=== PATIENT | female | born 1965 | race Two or more races ===

== ENCOUNTER 2025-01-18 20:56 | Emergency (ER) | payer MEDICAID, SELFPAY ==
[2025-01-18 20:56] VITALS: BMI 31.2
[2025-01-18 21:05] VITALS: BP 122/81; PULSE 99; RESP 20; TEMP 36.7; O2SAT 98
--- NOTE | 2025-01-18 21:12 | XR_ITS ---
Examination: PA and lateral chest 2 views Technique upright PA lateral chest 2 views Date time: January 18, 2025 2156 hours INDICATIONS: Chest pain and tachycardia today. FINDINGS: Normal heart size. Lungs are clear. Moderate osteopenia IMPRESSION: No active disease
--- NOTE | 2025-01-18 21:12 | EKG_ITS ---
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
--- NOTE | 2025-01-18 21:13 | PD.EDRME ---
Rapid Medical Screening Exam RME Arrival date/time: 01/18/25 20:56\ 59 yo f present to ED For c/o of rapid hr, chest pain today I have greeted and performed a focused initial assessment of this patient. A comprehensive ED assessment and evaluation of the patient, analysis of all test results, and completion of the medical decision making process will be conducted by additional ED providers. Chief Complaint: Arrhythmia/Palpitations Time Seen by Provider: 01/18/25 21:07 Vital signs: Vital Signs Temperature 98.0 F 01/18/25 21:05 Pulse Rate 99 01/18/25 21:05 Respiratory Rate 20 01/18/25 21:05 Blood Pressure 122/81 01/18/25 21:05 Pulse Oximetry (%) 98 01/18/25 21:05 Oxygen Delivery Method Room Air 01/18/25 21:05
[2025-01-18 22:55] LABS: Basophils # (Auto) 0.1 Thou/mm3 (0.0-0.2); Basophils % (Auto) 1 % (0-2.5); Eosinophils # (Auto) 0.2 Thou/mm3 (0.0-0.5); Eosinophils % (Auto) 2 % (0-10); Hematocrit 35.9 % (36.0-46.0); Hemoglobin 12.5 g/dL (12.0-16.0); Immature Granulocytes % (Auto) 0 % (0-0); Immature Granulocytes Auto 0.02 Thou/mm3 (0.00-0.00); Lymphocytes # (Auto) 2.7 Thou/mm3 (1.0-4.8); Lymphocytes % (Auto) 31 % (10-50); Mean Corpuscular HGB Conc 34.8 g/dl (31.0-37.0); Mean Corpuscular Hemoglobin 30.6 pg (25.0-35.0); Mean Corpuscular Volume 88 fL (80-100); Monocytes # (Auto) 0.7 Thou/mm3 (0.0-0.8); Monocytes % (Auto) 8 % (0-12); Neutrophils % (Auto) 58 % (37-80); Nucleated Red Blood Cell % 0 /100 WBC (0); Platelet Count 297 Thou/mm3 (140-440); RDW Standard Deviation 43.9 fL (36.4-46.3); Red Blood Count 4.08 Miln/mm3 (4.00-5.20); White Blood Count 8.6 Thou/mm3 (3.6-11.0)
[2025-01-18 23:36] LABS: Alanine Aminotransferase 18 U/L (10-49); Albumin, Serum 4.4 gm/dL (3.4-4.8); Albumin/Globulin Ratio 1.6 (1.2-2.2); Alkaline Phosphatase 84 U/L (46-116); Anion Gap 8 (7-16); Aspartate Amino Transferase 21 U/L (0-34); BUN/Creatinine Ratio 21 Ratio (12-20); Bilirubin,Total 0.4 mg/dL (0.3-1.2); Blood Urea Nitrogen 19 mg/dL (9-23); Calcium 8.9 mg/dL (8.3-10.6); Calcium (Corrected) 8.9 mg/dL (8.5-10.1); Carbon Dioxide 24.9 mMol/L (20.0-31.0); Chloride 106 mMol/L (98-107); Creatinine (Component) 0.9 mg/dL (0.6-1.3); Estimated Creatinine Clearance 59.1 mL/min (>60); Globulin 2.8 gm/dL (2.3-3.5); Glucose 111 mg/dL (74-106); Lipase 52 U/L (12-53); Osmolality,Calculated 280 (275-295); Sodium 139 mMol/L (136-145); Total Protein 7.2 gm/dL (5.7-8.2); Troponin I 0.028 ng/mL (0.0-0.045); eGFR > 60 See Note
--- NOTE | 2025-01-19 00:46 | PD.EDARRY ---
ED Arrhythmia Palp. RME/HPI General Chief Complaint: Arrhythmia/Palpitations Stated Complaint: HEART PALPITATIONS Time Seen by Provider: 01/18/25 21:07 Arrival date/time: 01/18/25 20:56 RME / HPI RME / HPI narrative: 01/18/25 20:56\ 59 yo f present to ED For c/o of rapid hr, chest pain today I have greeted and performed a focused initial assessment of this patient. A comprehensive ED assessment and evaluation of the patient, analysis of all test results, and completion of the medical decision making process will be conducted by additional ED providers. This section includes all my notes and documentations, including HPI, PE, and ED course. Davey Del Cid MD HPI: 59 y/o female presents to ED c/o gradually worsening heart palpitations and pain to the back of the head x approximately 5 hours ago. Reports increased stress. Patient is currently taking Levothyroxine. No chest pain. No other complaints. ROS: All negative except as documented in HPI. Physical Exam: General:? Alert and oriented.? Appears anxious. Eyes:? Conjunctivae and lids clear.? EOMI.? PERRL. ENT:? No nasal congestion.? Pharynx normal.? Tympanic membrane normal bilaterally.??? Neck:? Supple.? No lymphadenopathy.? No JVD.?? Heart:? RRR.? Lungs:? No respiratory distress.? Good air movement.? No rhonchi, wheezing, rales.?? Abdomen:? Soft and nontender.? Back:? No CVA tenderness.?? Legs:? No clubbing, cyanosis, edema.? Skin:? Warm and dry.?? Neuro:? Alert and oriented X 3.? Cranial Nerves II-XII grossly intact.? No peripheral motor deficits. I reviewed all diagnostic test results. My interpretation of the EKG is sinus rhythm with no acute ST?T changes. My interpretation of the chest x-ray is NAD Blood tests unremarkable. At this point, diagnoses include stress and anxiety reaction. Patient improved completely spontaneously here. Recommended more outpatient workup. Based on my best medical judgment, made decision no further evaluation or treatment indicated at this time. Patient understands and agrees to the discharge instructions customized and printed, see below. Discharge instructions from Dr. Del Cid: 1. After extensive evaluation, there is no life-threatening condition.? Such as heart attack or pneumothorax (collapsed lung). 2. Your symptoms may be due to underlying stress or anxiety or nerves.? This is fairly common. 3. Take Xanax as needed.? Whether this helps or not will be valuable information to your private doctors. 4. See a private doctor on 01/20/2025. Ask to review all test results and official radiology reports, to make sure you receive all necessary follow-ups and monitoring. To make sure there is no serious underlying heart condition, ask to help you get more tests for your heart that cannot be done here in the ER.? Such as Holter Monitor (cardiac monitoring at home from a day to even a month), heart stress test (on treadmill or with medication), echocardiogram (imaging of your heart structures), heart catherization (checking for blockages in your heart arteries), and a referral to see a Radio Television Announcer. 5. Seek immediate medical care with worsening or with any concerns.?? Davey Del Cid MD Related Data Home Medications ?Medication ?Instructions ?Recorded ?Confirmed ciprofloxacin 500 mg/5 mL oral 500 mg PO BID ##0 01/29/08 suspension (Cipro) Previous Rx's ?Medication ?Instructions ?Recorded ciprofloxacin HCl 0.3 % eye drops See Rx Instructions ophthalmic 02/05/24 (eye) .COMPLEX #5 mL alprazolam 0.5 mg tablet (Xanax) 0.5 mg PO BID PRN anxiety #20 tabs 01/19/25 Allergies Allergy/AdvReac Type Severity Reaction Status Date / Time No Known Allergies Allergy Verified 01/18/25 20:59 Past Medical History Social History SMOKING STATUS: Never smoker ED Exam Narrative Physical exam: Refer to HPI above. Course Course Course Narrative: CXR was ordered to determine etiology of shortness of breath. Quality Measures none Orders Category Date Time Status EKG (ED ONLY) *Do not use* NOW Care 01/18/25 21:12 Completed EKG (ED Only) Stat Exams 01/18/25 21:12 Draft XR chest 2V Stat Exams 01/18/25 21:12 Completed CBC Stat Lab 01/18/25 22:38 Completed CMP [Comprehensive Metabolic Panel] Stat Lab 01/18/25 22:38 Completed Free T4 (Free Thyroxine) Stat Lab 01/19/25 00:39 Ordered Lipase Stat Lab 01/18/25 22:38 Completed Mag [Magnesium] Stat Lab 01/18/25 22:38 Completed TSH [Thyroid Stimulating Hormone] Stat Lab 01/18/25 22:38 Completed Troponin I Stat Lab 01/18/25 22:38 Completed Vital Signs Vital signs: Vital Signs Temperature 98.0 F 01/18/25 21:05 Pulse Rate 99 01/18/25 21:05 Respiratory Rate 20 01/18/25 21:05 Blood Pressure 122/81 01/18/25 21:05 Pulse Oximetry (%) 98 01/18/25 21:05 Oxygen Delivery Method Room Air 01/18/25 21:05 Arrhythmia/Palpitations MDM Narrative MDM Narrative:: Scribe Attestation: Evonne Franco, am scribing for and in the presence of Dr. Del Cid. Provider Notation: Although this document has been carefully reviewed, there may still be some phonetic and other typographical errors.? These errors are purely grammatical due to imperfections in the software program and should not be construed in any way to? compromise the substance of the patient's medical care during this visit. 59 y/o female presents to ED c/o gradually worsening heart palpitations and pain to the back of the head x approximately 5 hours ago. Patient data External records reviewed:: [facility] previous records Clinical information provided by:: patient Social determinants that could affect healthcare access:: none Patient has the following chronic illnesses:: None reported How is presenting disease/condition affected by chronic disease/condition?: no chronic disease Evaluation data The following diagnostics were reviewed and interpreted by me:: lab results, radiology exam(s) and EKG tracing(s) Lab and/or radiology exams considered but not ordered:: None Interpretation Summary: I reviewed all diagnostic test results. My interpretation of the EKG is sinus rhythm with no acute ST?T changes. My interpretation of the chest x-ray is NAD Blood tests unremarkable. Medications / Prescriptions Medications or Prescriptions considered but not ordered:: None Medication administrations:: N/A Consultations Consultation(s) initiated? (list below): No Diagnosis Differential diagnosis arrhythmia/palpitations: palpitations, anxiety, sinus tachycardia, artial fibrillation, artial flutter, ventricular premature beats, supraventricular tachycardia, ventricular tachycardia and WPW Most likely diagnosis given after review of the tests above:: Anxiety and stress reaction Admission Indicated Admission indicated?: not indicated Explain why admission is indicated or not indicated:: With improvement, there was no indication for admission. Admission Request Was there a request for admission?: No Disposition Plan Disposition Plan: Discharge Discharge Attestation Discharge Attestation: The patient and all family members were given an opportunity to ask questions and understood the discharge instructions. Discharge instructions specifically effects, indications for sooner follow up or return to the emergency department, and the expected course of current diagnosis. Patient condition: Stable Discharge Plan Plan Patient Disposition: HOME (Self Care) Prescriptions/Referrals Prescriptions/Med Rec: New alprazolam [Xanax] 0.5 mg tablet 0.5 mg PO BID PRN (Reason: anxiety) Qty: 20 0RF No Action ciprofloxacin [Cipro] 500 MG/5 ML suspension,microcapsule recon 500 mg PO BID Qty: 0 ciprofloxacin HCl 0.3 % drops See Rx Instructions .ROUTE .COMPLEX Qty: 5 0RF Rx Instructions: put 1-2 drps in affected eye(s) every 2hr up to 8 times/day x2days; then 4 times/day x5days Referrals: No Primary/Family,Physician [Primary Care Provider] - In 1 week Problem List Clinical Impression: Palpitations Patient/Caregiver Discharge Instructions Discharge Activity: activity as tolerated Education Materials: ED Anxiety Reaction, ED Panic Attack Additional Instructions: Discharge instructions from Dr. Del Cid: 1. After extensive evaluation, there is no life-threatening condition.? Such as heart attack or pneumothorax (collapsed lung). 2. Your symptoms may be due to underlying stress or anxiety or nerves.? This is fairly common. 3. Take Xanax as needed.? Whether this helps or not will be valuable information to your private doctors. 4. See a private doctor on 01/20/2025. Ask to review all test results and official radiology reports, to make sure you receive all necessary follow-ups and monitoring. To make sure there is no serious underlying heart condition, ask to help you get more tests for your heart that cannot be done here in the ER.? Such as Holter Monitor (cardiac monitoring at home from a day to even a month), heart stress test (on treadmill or with medication), echocardiogram (imaging of your heart structures), heart catherization (checking for blockages in your heart arteries), and a referral to see a Radio Television Announcer. 5. Seek immediate medical care with worsening or with any concerns.?? Instrucciones de carlos del Dr. Del Cid: 1. Tras matt evaluaci?n exhaustiva, no se observa ninguna afecci?n que ponga en peligro la luis alberto, christopher un infarto, matt embolia pulmonar (co?gulos de devon en los pulmones) o un neumot?rax (colapso pulmonar). 2. Lashon s?ntomas pueden deberse a estr?s, ansiedad o nerviosismo subyacentes. [place] es bastante com?n. 3. Felida Xanax seg?n sea necesario. Jiménez m?dico le informar? si esto le ayuda o no. 4. Consulte con un m?dico el 27/02/2023. Para asegurarse de que no haya matt afecci?n card?robyn subyacente grave, solicite ayuda para realizar m?s pruebas card?acas que no se pueden realizar en urgencias. Por ejemplo, un monitor Holter (monitorizaci?n card?robyn en casa desde un d?a hasta un mes), matt prueba de esfuerzo card?aco (en cinta caminadora o con medicaci?n), un ecocardiograma (im?genes de las estructuras card?acas), un cateterismo card?aco (para detectar obstrucciones en las arterias card?acas) y matt derivaci?n a un cardi?logo. 5. Busque atenci?n m?dica inmediata si empeora o tiene alguna inquietud. Print Language: Portuguese Stand Alone Forms: Annika Award Info., Patient Portal Info Letter
[2025-01-19 01:15] LABS: Free T4 (Free Thyroxine) 0.94 ng/dL (0.89-1.76)
== END 2025-01-19 01:13 | disposition home or self-care (01) ==
PROVIDERS: Physician Assistant; Emergency Provider Emergency Medicine
DX: F41.1 Generalized anxiety disorder (principal); F43.9 Reaction to severe stress, unspecified; R00.2 Palpitations; R07.9 Chest pain, unspecified; R94.31 Abnormal electrocardiogram [ECG] [EKG]
CPT/HCPCS: 36415; 71046; 80053; 83690; 83735; 84439; 84443; 84484; 85025; 93005; 99283